=== PATIENT | male | born 1965 | race Caucasian/White ===

== ENCOUNTER 2024-05-17 08:59 | Outpatient (CLI) | payer OTHER | END 2024-05-17 09:00 | disposition home or self-care (01) | LOC: BICRAD 08:59 → RAD 09:00 | PROVIDERS: ATTEND Internal Medicine | DX: Z02.71 Encounter for disability determination (principal); M54.50 Low back pain, unspecified; G89.29 Other chronic pain; M47.816 Spondylosis without myelopathy or radiculopathy, lumbar region; Z96.9 Presence of functional implant, unspecified | CPT/HCPCS: 72100 ==